=== PATIENT | male | born 1965 | race Caucasian/White ===

== ENCOUNTER 2017-01-08 15:13 | Emergency (ER) | payer OTHER ==
[~2017-01-08 15:13] MED LIST: ASPIRIN; ATENOLOL; FLEXERIL10 M1 PO; IBUPROFEN800 MG PO; TESSALON200 MG PO; ZITHROMAX PO
[2017-01-08] MEDS ORDERED: LEXAPRO20 MG PO (15:22)
[2017-01-08] MEDS ORDERED: METOPROLOL SUCC25 MG PO (15:22)
== END 2017-01-08 15:52 | disposition home or self-care (01) ==
LOC: SED 15:13
DX: L50.0 Allergic urticaria (principal); L29.9 Pruritus, unspecified; I10 Essential (primary) hypertension; Z88.1 Allergy status to other antibiotic agents; Z88.2 Allergy status to sulfonamides; F17.210 Nicotine dependence, cigarettes, uncomplicated
CPT/HCPCS: 99282